=== PATIENT | female | born 1995 | race African-American/Black ===

== ENCOUNTER 2018-11-30 21:09 | Emergency (ER) | payer MEDICAID ==
[~2018-11-30] VITALS: Ht 160 cm; Wt 101.0 kg
[2018-12-01] MEDS ORDERED: KETOROLAC 30MG/ML VIAL IM ONE (05:00)
[2018-12-01] MEDS ORDERED: ALBUTEROL (0.083%) 2.5MG/3ML NEB HHN ONE (05:00)
[2018-12-01 06:17] VITALS: BP 117/78
== END 2018-12-01 06:25 | disposition home or self-care (01) ==
LOC: ER 21:09
DX: J06.9 Acute upper respiratory infection, unspecified (principal); J45.909 Unspecified asthma, uncomplicated; F17.200 Nicotine dependence, unspecified, uncomplicated
CPT/HCPCS: 71045; 81025; 87804; 94640; 96372; 99284; J1885; J7611